=== PATIENT | male | born 1955 | race Caucasian/White ===

== ENCOUNTER 2018-02-26 17:00 | Emergency (ER) | payer BC ==
[~2018-02-26] VITALS: Ht 182.9 cm; Wt 112.0 kg
[2018-02-26] MEDS ORDERED: COZAAR25 MG PO (17:14)
[2018-02-26] MEDS ORDERED: GLUCOPHAGE500 MG PO (17:14)
[2018-02-26] MEDS ORDERED: ZITHROMAX250 MG PO (20:08)
[2018-02-26] MEDS ORDERED: ONDANSETRON ODT8 MG PO (20:08)
--- NOTE | 2018-02-26 20:35 | EKG ---
[facility] [address] [place] [address] Signed Normal sinus rhythm Normal ECG No previous ECGs available Confirmed by LEE JONES MD ([id number]) on 02/26/2018 8:35:19 PM Electronically Signed By: LEE JONES MD 02/26/18 2035 PATIENT NAME: ANJU NICHOLE Electrocardiogram DATE OF : 57 PHYSICIAN: LEE JONES MD REPORT #: [id number] REPORT IS CONFIDENTIAL AND NOT TO BE RELEASED WITHOUT AUTHORIZATION
== END 2018-02-26 20:33 | disposition home or self-care (01) ==
LOC: ED 17:00
DX: J18.9 Pneumonia, unspecified organism (principal); I10 Essential (primary) hypertension; E11.9 Type 2 diabetes mellitus without complications; Z79.84 Long term (current) use of oral hypoglycemic drugs; Z79.899 Other long term (current) drug therapy
CPT/HCPCS: 71046; 80053; 83605; 83735; 84484; 85025; 87040; 93005; 93010; 96374; 96375; 99284; J0456; J0696; J7030